=== PATIENT | male | born 1970 | race Caucasian/White ===

== ENCOUNTER 2020-02-19 13:18 | Emergency (ER) | payer OTHER ==
[~2020-02-19] VITALS: Ht 180.3 cm; Wt 110.2 kg
[2020-02-19 13:42] VITALS: BP 157/98
== END 2020-02-19 14:53 | disposition left against medical advice (07) ==
LOC: ED 13:18
DX: Z53.21 Procedure and treatment not carried out due to patient leaving prior to being seen by health care provider (principal)